=== PATIENT | male | born 1950 | race American Indian/Alaskan Native ===

== ENCOUNTER 2019-01-27 23:25 | Emergency (ER) | payer MEDICARE, OTHER ==
[2019-01-27] MEDS ORDERED: NACL 0.9% 1000 ML 1,000 ML IV ONE (23:30)
--- NOTE | 2019-01-27 23:37 | Emergency Department Report ---
ED Altered Mental Status HPI - General Stated Complaint: FALL LT SIDE WEEKNESS Time Seen by Provider: 01/27/19 23:30 - History of Present Illness Initial Comments: Mr. Ayers is a 68-year-old gentleman with a history of high blood pressure who was found passed out next to her truck. His stated that he went to the store. After several hours he did not come back home. She discovered him semi- responsive breathing but lethargic next to his truck. She was able to arouse him. She noticed scratches on the left side of his face. EMS was called. The glucose was normal in the field. Blood pressure was normal. He had previous left leg pain and weakness due to sciatica. He is followed at the [facility]. He takes a blood thinner to avoid clots or stroke. He does not know why. He drank beer and liquor today. His states he drinks every other day. MD Complaint: altered mental status, decreased responsiveness -: This evening Severity: severe Consistency of Symptoms: waxing and waning Context: alcohol abuse Associated Symptoms: difficulty walking - Related Data Allergies Allergy/AdvReac Type Severity Reaction Status Date / Time No Known Allergies Allergy Unverified 01/27/19 23:45 ED Review of Systems ROS: Stated complaint: FALL LT SIDE WEEKNESS Other details as noted in HPI Comment: All other systems reviewed and negative Constitutional: denies: fever Respiratory: denies: cough Cardiovascular: denies: chest pain ED Past Medical Hx - Past Medical History Previous Medical History?: Yes Hx Hypertension: Yes - Social History Smoking Status: Current Every Day Smoker Substance Use Type: Alcohol ED Physical Exam - General General appearance: alert, in no apparent distress, appears intoxicated - Head Head exam: Present: normocephalic, other (multiple abrasions side of face) - Eye Eye exam: Present: normal appearance. Absent: scleral icterus, conjunctival injection - ENT ENT exam: Present: mucous membranes moist - Neck Neck exam: Present: normal inspection, full ROM. Absent: tenderness, meningismus - Respiratory Respiratory exam: Present: normal lung sounds bilaterally. Absent: respiratory distress, wheezes, rales, rhonchi - Cardiovascular Cardiovascular Exam: Present: regular rate, normal rhythm, normal heart sounds. Absent: systolic murmur, diastolic murmur, rubs, gallop - GI/Abdominal GI/Abdominal exam: Present: soft, normal bowel sounds. Absent: distended, tenderness, guarding, rebound - Rectal Rectal exam: Present: deferred - Extremities Exam Extremities exam: Present: normal inspection - Back Exam Back exam: Present: normal inspection - Neurological Exam Neurological exam: Present: alert, oriented X3 - Psychiatric Psychiatric exam: Present: normal affect, normal mood - Skin Skin exam: Present: warm, dry, intact, normal color. Absent: rash - Assessment Assessment Interval: Baseline - Level of Consciousness 1a. Level of Consciousness: alert/keenly responsive - LOC Questions 1b. LOC Questions: answers both correctly - LOC Command 1c. LOC Commands: performs tasks correctly - Best Gaze 2. Best Gaze: normal - Visual 3. Visual: no visual loss - Facial Palsy 4. Facial Palsy: normal symmetrical movement - Motor Arm 5a. Motor Arm Left: no drift 5b. Motor Arm Right: no drift - Motor Leg 6a. Motor Leg Left: no drift 6b. Motor Leg Right: no drift - Limb Ataxia 7. Limb Ataxia: absent - Sensory 8. Sensory: normal - Best Language 9. Best Language: no aphasia - Dysarthria 10. Dysarthria: mild/moderate dysarthria - Extinction and Inattention 11. Extinction/Inattention: no abnormality - Scoring Total Score: 1 Stroke Severity: Minor Stroke ED Course Vital Signs 01/27/19 01/27/19 01/28/19 23:39 23:45 00:42 Pulse Rate 99 H 99 H 94 H Respiratory 18 14 21 Rate Blood Pressure 104/62 - Lab Data Result diagrams: 01/27/19 23:41 01/27/19 23:46 Lab Results 01/27/19 01/27/19 01/27/19 Range/Units 23:41 23:45 23:46 WBC 8.8 (4.5-11.0) K/mm3 RBC 4.02 (3.65-5.03) M/mm3 Hgb 12.1 (11.8-15.2) gm/dl Hct 36.6 (35.5-45.6) % MCV 91 (84-94) fl MCH 30 (28-32) pg MCHC 33 (32-34) % RDW 14.3 (13.2-15.2) % Plt Count 478 H (140-440) K/mm3 Lymph % (Auto) 14.2 (13.4-35.0) % Catron % (Auto) 5.6 (0.0-7.3) % Eos % (Auto) 1.0 (0.0-4.3) % Baso % (Auto) 0.7 (0.0-1.8) % Lymph # 1.2 (1.2-5.4) K/mm3 Catron # 0.5 (0.0-0.8) K/mm3 Eos # 0.1 (0.0-0.4) K/mm3 Baso # 0.1 (0.0-0.1) K/mm3 Seg Neutrophils % 78.5 H (40.0-70.0) % Seg Neutrophils # 6.9 (1.8-7.7) K/mm3 PT 11.3 L (12.2-14.9) Sec. INR 0.85 L (0.87-1.13) APTT 23.4 L (24.2-36.6) Sec. Sodium 134 L (137-145) mmol/L Potassium 3.4 L (3.6-5.0) mmol/L Chloride 99.5 (98-107) mmol/L Carbon Dioxide 17 L (22-30) mmol/L Anion Gap 21 mmol/L BUN 12 (9-20) mg/dL Creatinine 1.5 (0.8-1.5) mg/dL Estimated GFR 56 ml/min BUN/Creatinine Ratio 8 % Glucose 109 H (75-100) mg/dL Calcium 9.2 (8.4-10.2) mg/dL Total Bilirubin 0.30 (0.1-1.2) mg/dL AST 92 H (5-40) units/L ALT 59 H (7-56) units/L Alkaline Phosphatase 71 (35-129) units/L Troponin T < 0.010 (0.00-0.029) ng/mL Total Protein 8.0 (6.3-8.2) g/dL Albumin 4.4 (3.9-5) g/dL Albumin/Globulin Ratio 1.2 % - Radiology Data Radiology results: report reviewed CT head Ct Cspine no acute traumatic process - Medical Decision Making Mr. Garland presents with acute alcohol intoxication, closed head injury, facial abrasions. He is awake alert and ambulatory without difficulty. His will take him home after IV fluid hydration. No evidence of CVA. Critical care attestation.: If time is entered above; I have spent that time in minutes in the direct care of this critically ill patient, excluding procedure time. ED Disposition Clinical Impression: Acute alcohol intoxication, Closed head injury, Facial abrasion Disposition: DC-01 TO HOME OR SELFCARE Is pt being admited?: No Does the pt Need Aspirin: No Condition: Stable Instructions: Alcohol Intoxication (ED)
[2019-01-28 00:01] LABS: Basophils # (Auto) 0.1 K/mm3 (0.0-0.1); Basophils % (Auto) 0.7 % (0.0-1.8); Eosinophils # (Auto) 0.1 K/mm3 (0.0-0.4); Hematocrit 36.6 % (35.5-45.6); Hemoglobin 12.1 gm/dl (11.8-15.2); Lymphocytes # (Auto) 1.2 K/mm3 (1.2-5.4); Lymphocytes % (Auto) 14.2 % (13.4-35.0); Mean Corpuscular HGB Conc 33 % (32-34); Mean Corpuscular Volume 91 fl (84-94); Monocytes # (Auto) 0.5 K/mm3 (0.0-0.8); Monocytes % (Auto) 5.6 % (0.0-7.3); Platelet Count 478 K/mm3 (140-440); Red Blood Count 4.02 M/mm3 (3.65-5.03); Red Cell Distribution Width 14.3 % (13.2-15.2)
[2019-01-28 00:22] LABS: Alanine Aminotransferase 59 units/L (7-56); Albumin 4.4 g/dL (3.9-5); BUN/Creatinine Ratio 8; Blood Urea Nitrogen 12 mg/dL (9-20); Calcium 9.2 mg/dL (8.4-10.2); Hemolysis Index 18
--- NOTE | 2019-01-28 00:41 | Cat Scan Report ---
CT head/brain wo con INDICATION / CLINICAL INFORMATION: Stroke symptoms. TECHNIQUE: Axial CT imaging of the brain was obtained without IV contrast. Coronal and sagittal reformatted imag ing obtained and reviewed. All CT scans at this location are performed using CT dose reduction for AL ROSALINDA by means of automated exposure control. COMPARISON: None available. FINDINGS: No intracranial hemorrhage, mass, or midline shift is noted. No extra-axial fluid collection or sugge stion of acute territorial infarct. Ventricular system and basilar cisterns are unremarkable. There i s mild to moderate parenchymal volume loss. Visualized paranasal sinuses and mastoid air cells are grossly clear. No calvarial abnormality. IMPRESSION: 1. No acute intracranial abnormality. There is no CT evidence for CVA at this time. Please note that a negative CT scan does not exclude the presence of CVA. 2. Age-related changes. Signer Name: Anni Shaw MD Signed: 01/28/2019 12:37 AM Workstation Name: [id number]
[2019-01-28 00:51] LABS: INR 0.85 (0.87-1.13)
[2019-01-28 00:52] LABS: Partial Thromboplastin Time 23.4 Sec. (24.2-36.6)
--- NOTE | 2019-01-28 01:01 | Cat Scan Report ---
CT cervical spine wo con INDICATION / CLINICAL INFORMATION: fall neck pain. TECHNIQUE: Axial CT imaging of the cervical spine was obtained without IV contrast. Coronal and sagittal reforma tted imaging obtained and reviewed. All CT scans at this location are performed using CT dose reducti on for ALARA by means of automated exposure control. COMPARISON: None available. FINDINGS: There is multilevel degenerative disc disease with advanced spondylitic change in the mid cervical sp ine. No evidence for traumatic subluxation or acute fracture. There is bilateral neuroforaminal narro wing from C3-C7. No paravertebral soft tissue abnormalities. Visualized lung apices show no acute pulmonary or pleural disease. IMPRESSION: 1. No evidence for cervical spine fracture or traumatic subluxation. 2. Moderate multilevel degenerative disc disease with prominent spondylitic change. 3. Bilateral neuroforaminal narrowing, C3-C7 Signer Name: Anni Shaw MD Signed: 01/28/2019 12:57 AM Workstation Name: [id number]
[2019-01-28 01:48] LABS: Amphetamine Screen,Urine PRESUMPTIVE NEGATIVE; Benzodiazepines Screen,Urine PRESUMPTIVE NEGATIVE; Cannabinoid Screen,Urine PRESUMPTIVE NEGATIVE; Cocaine Screen,Urine PRESUMPTIVE NEGATIVE; Methadone Screen,Urine PRESUMPTIVE NEGATIVE; Opiate Screen,Urine PRESUMPTIVE NEGATIVE
[2019-01-28] MEDS ORDERED: NACL 0.9% 1000 ML 1,000 ML IV ONE (02:04)
[2019-01-28 02:05] LABS: Amorphous Crystals,Urine Few; Bilirubin,Urine NEG (Negative); Blood,Urine MOD (Negative); Color,Urine Yellow (Yellow); Hyaline Casts,Urine 17 /LPF; Mucus,Urine FEW /HPF; Protein,Urine <15 mg/dL mg/dL (Negative); Urobilinogen,Urine < 2.0 mg/dL (<2.0); WBC,Urine < 1.0 /HPF (0.0-6.0)
[2019-01-28] MEDS ORDERED: NACL 0.9% 1000 ML 1,000 ML ONE (05:14)
[2019-01-28 07:45] VITALS: BP 135/77
== END 2019-01-28 09:13 | disposition home or self-care (01) ==
LOC: ED 23:25
DX: S00.81XA Abrasion of other part of head, initial encounter (principal); F10.120 Alcohol abuse with intoxication, uncomplicated; I10 Essential (primary) hypertension; F17.200 Nicotine dependence, unspecified, uncomplicated; W18.30XA Fall on same level, unspecified, initial encounter; Y93.89 Activity, other specified; Y92.89 Other specified places as the place of occurrence of the external cause; Y99.8 Other external cause status
CPT/HCPCS: 36415; 70450; 72125; 80053; 80307; 81001; 84484; 85025; 85610; 85730; 96360; 96361; 99284; G0480; J7030; 80320